=== PATIENT | female | born 1980 | race Caucasian/White ===

== ENCOUNTER 2017-02-25 13:05 | Emergency (ER) | payer MEDICAID ==
[~2017-02-25] VITALS: Ht 157.5 cm; Wt 50.0 kg
[2017-02-25 13:12] VITALS: Ht 157.5 cm; Wt 50.0 kg
[2017-02-25] MEDS ORDERED: HYDROCODONE/APAP (5/325) TAB PO ONE (14:00)
[2017-02-25] MEDS ORDERED: BACLOFEN 10 MG TAB PO ONE (14:00)
[2017-02-25] MEDS ORDERED: BACL10TA PO (14:04)
[2017-02-25] MEDS ORDERED: HYDR-906 PO (14:04)
--- NOTE | 2017-02-25 14:36 | ERD ---
ER Documentation Chief Complaint Date/Time DATE: 02/25/17 TIME: 14:33 Chief Complaint Complains of right side facial pain x 4 days HPI This is a 36-year-old female presents to the ER with right-sided facial pain that started on . Pain is severe and constant it is sharp and is located near her mouth on her cheek and near her eye. Patient denies any eye pain, vision loss or vision changes. She does not have any rashes on her face. Patient went to her primary care doctor on Sunday and was given prednisone and acyclovir. Patient does admit to some numbness and tingling to the right side of her face however denies any weaknesses. Patient states that it is painful for her to close her eye or to move her face. She denies any fevers or chills. Patient denies any head trauma or falls. ROS 12 point review of systems was done, all negative except per HPI. Medications Home Meds Active Scripts Hydrocodone/Acetaminophen ([place] 5-325 Tablet) 1 Each Tablet, 1 TAB PO Q6H Y for PAIN, #20 TAB Prov:LINK ESCOBAR C 02/25/17 Baclofen* (Baclofen*) 10 Mg Tablet, 10 MG PO Q8 for 7 Days, TAB Prov:SHAWN,LINK C 02/25/17 Allergies Allergies: Coded Allergies: No Known Allergy (Verified , 02/25/17) PMhx/Soc Medical and Surgical Hx: pt denies Medical Hx, pt denies Surgical Hx Hx Alcohol Use: No Hx Substance Use: No Hx Tobacco Use: No Smoking Status: Never smoker Physical Exam Vitals Vital Signs Date Time Temp Pulse Resp B/P Pulse Ox O2 Delivery O2 Flow Rate FiO2 02/25/17 13:12 98.3 95 20 129/78 98 Physical Exam GENERAL: The patient is well developed and appropriate for usual state of health , in no apparent distress. HEENT: Atraumatic. Conjunctivae are pink. Pupils equal, round, and reactive to light. Extraocular muscles are grossly intact. Bilateral tympanic membranes are clear with no evidence of erythema, bulging or perforation. No sinus tenderness. Patient is tender to palpation along the trigeminal nerve. CHEST: Clear to auscultation bilaterally. There are no rales, wheezes or rhonchi. HEART: Regular rate and rhythm. No murmurs, clicks, rubs or gallops. EXTREMITIES: Equal pulses bilaterally. There is no peripheral clubbing, cyanosis or edema. No focal swelling or erythema. Full range of motion. Grossly neurovascularly intact. NEURO: Alert and oriented. Cranial nerves II through XII are intact. Motor strength in all 4 extremities with 5/5 strength. Sensation grossly intact. Normal speech and gait. Negative Rhomberg. +2 DTRs. SKIN: There is no apparent rash or petechia. The skin is warm and dry. Results 24 hrs Current Medications Medications (Trade) Dose Ordered Sig/Vaughn Route PRN Reason Start Time Stop Time Status Last Admin Dose Admin Baclofen (Lioresal) 20 mg ONCE ONCE PO 02/25/17 14:00 02/25/17 14:01 DC 02/25/17 14:13 Acetaminophen/ Hydrocodone Bitart ([place] (5/325)) 1 tab ONCE ONCE PO 02/25/17 14:00 02/25/17 14:01 DC 02/25/17 14:13 Procedures/MDM Differential Diagnosis includes but is not limited to; tension headache, migraine headache, cluster headache, sinus headache, nonspecific febrile headache, trigeminal neurologia, subdural hematoma, subarachnoid bleeding, meningitis, encephalitis. Patient is neurologically intact with no focal neurological deficits. This is a 36-year-old female that presents to the ER with right-sided facial pain. Patient does have pain along the trigeminal neuralgia this is likely the cause of her pain. 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 At this time I do not believe that patient needs CT imaging as her neurological examination is completely benign. Patient will be sent home with baclofen and [place]. She is to follow-up with her primary care doctor within 1-2 days or return to ER sooner if symptoms worsen. My medical decision making shared with the patient she understands and agrees with plan. Departure Diagnosis: Primary Impression: Trigeminal neuralgia Condition: Stable Patient Instructions: Trigeminal Neuralgia Additional Instructions: Llame al doctor YOKO y mary ellen toyin POONAM PARA DENTRO DE 1-2 VENCES.Dgale a la secretaria que nosotros le instruimos hacer esta poonam.Avise o llame si marlow condicin se empeora antes de la poonam. Regresa aqui si peor o no mejor. SHAWN,LINK C Feb 25, 2017 14:36
== END 2017-02-25 14:18 | disposition home or self-care (01) ==
LOC: FTE 13:05
DX: G50.0 Trigeminal neuralgia (principal)
CPT/HCPCS: Z7502; Z7610; 99284